=== PATIENT | male | born 1965 | race Caucasian/White ===

== ENCOUNTER 2018-07-25 04:25 | Emergency (ER) | payer OTHER, MEDICAID ==
[2018-07-25 04:25] VITALS: BMI 30.7
[2018-07-25 04:49] VITALS: PULSE 78; RESP 18
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
[2018-07-25 06:36] VITALS: BP 123/87; TEMP 98.5; O2SAT 98
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
== END 2018-07-25 06:39 | disposition home or self-care (01) ==
LOC: C.ER 04:25
DX: S16.1XXA Strain of muscle, fascia and tendon at neck level, initial encounter (principal); V49.40XA Driver injured in collision with unspecified motor vehicles in traffic accident, initial encounter